=== PATIENT | male | born 1955 | race Hispanic/Latino ===

== ENCOUNTER 2018-05-08 05:57 | Observation (INO) | payer BC ==
[2018-05-05 13:30] VITALS: BP 149/74
[2018-05-05 13:31] LABS: BASOPHILS % (AUTO) 0.9 % (0.0-5.0); EOSINOPHILS % (AUTO) 3.4 % (0.0-8.0); LYMPHOCYTES % (AUTO) 28.6 % (21.0-51.0); MEAN CORPUSCULAR HEMOGLOBIN 29.6 pg (27.0-33.0); MEAN CORPUSCULAR HGB CONC 33.2 g/dL (32.0-36.0); MEAN CORPUSCULAR VOLUME 89.2 fL (79-99); MONOCYTES % (AUTO) 8.5 % (3.0-13.0); NEUTROPHILS % (AUTO) 58.6 % (40.0-77.0); PLATELET COUNT (AUTO) 250 K/uL (130-400); RED BLOOD CELL COUNT(AUTO) 5.04 MIL/uL (4.50-6.20); RED CELL DISTRIBUTION WIDTH 13.3 % (11.0-15.5); WHITE BLOOD COUNT (AUTO) 5.4 K/uL (4.8-10.8)
[2018-05-05 13:39] LABS: APPEARANCE,URINE Clear (CLEAR); BILIRUBIN,URINE Negative (NEGATIVE); COLOR,URINE Yellow (YELLOW); GLUCOSE, URINE (UA) >=1000 mg/dL (NEGATIVE); KETONES,URINE Negative (NEGATIVE); LEUKOCYTE ESTERASE ,URINE Negative (NEGATIVE); NITRATE,URINE Negative (NEGATIVE); OCCULT BLOOD,URINE Negative (NEGATIVE); PROTEIN,URINE Negative (NEGATIVE)
[2018-05-05 13:40] LABS: CREATININE 0.9 mg/dL (0.5-1.5); POTASSIUM 4.2 mmol/L (3.5-5.1)
[2018-05-05 13:44] LABS: INR 0.93 (0.85-1.15); PARTIAL THROMBOPLASTIN TIME 25.7 SEC (26.3-35.5); PROTHROMBIN TIME 9.8 SEC (9.6-11.6)
[2018-05-05 13:48] LABS: BACTERIA,URINE Rare /HPF (None Seen); RBC,URINE 0-1 /HPF (0-1); SQUAMOUS EPITHELIAL CELL,UR Rare /HPF (0-2); WBC,URINE 0-1 /HPF (0-1)
[2018-05-08] VITALS (11 sets, daily range): BP systolic 127–157; BP diastolic 77–92
[~2018-05-08] VITALS: Ht 166.4 cm; Wt 89.7 kg
[2018-05-08] MEDS ORDERED: SODIUM CHLORIDE 0.9% 1000ML 1,000 ML IV ONE (06:52)
[2018-05-08] MEDS ORDERED: EMPA1TAB9 PO (07:10)
[2018-05-08] MEDS ORDERED: METO25TA3 PO (07:10)
[2018-05-08] MEDS ORDERED: DILT180C51 PO (07:10)
[2018-05-08] MEDS ORDERED: ASPI-1146 PO (07:10)
[2018-05-08] MEDS ORDERED: ATOR20TA65 PO (07:10)
[2018-05-08] MEDS ORDERED: LOSA50TA25 PO (07:10)
[2018-05-08] MEDS ORDERED: IOHEXOL 350 MG/ML 100ML INFUS..BTL IV ONE (07:36)
[2018-05-08] MEDS ORDERED: IOHEXOL-350 50ML VIAL IV ONE ×2 (07:36→09:23)
[2018-05-08] MEDS ORDERED: BIVALIRUDIN 250 MG/VIAL IV ONE (07:36)
[2018-05-08] MEDS ORDERED: NITROGLYCERIN 5 MG/ML 10 ML VIAL IV ONE (07:36)
[2018-05-08] MEDS ORDERED: LIDOCAINE HCL 2% 20ML ONE (07:37)
[2018-05-08] MEDS ORDERED: MIDAZOLAM HCL 1 MG/ML 2ML VIAL ONE ×2 (08:09→08:37)
[2018-05-08] MEDS ORDERED: FENTANYL CITRATE PF 50 MCG/1 ML 2ML VIAL ONE (08:09)
[2018-05-08] MEDS ORDERED: TICAGRELOR 90 MG TABLET ONE (09:41)
[2018-05-08] MEDS ORDERED: ASPIRIN 325MG EC TAB 325 MG TABLET.DR PO ONE (09:43)
[2018-05-08] MEDS ORDERED: ONDANSETRON HCL 4 MG/2 ML VIAL IVP PRN (10:00)
[2018-05-08] MEDS ORDERED: ONDANSETRON HCL 4 MG/2 ML VIAL IVP SCH (10:00)
[2018-05-08] MEDS ORDERED: TEMAZEPAM 30 MG CAP PO PRN (10:00)
[2018-05-08] MEDS ORDERED: NITROGLYCERIN 0.4 MG SL TAB SL PRN (10:00)
[2018-05-08] MEDS ORDERED: ACETAMINOPHEN-CODEINE 300/30MG TAB PO PRN ×2 (10:00)
[2018-05-08] MEDS ORDERED: DEXTROSE 50%-WATER 50 ML DISP.SYRIN IV PRN (10:00)
[2018-05-08] MEDS ORDERED: METOPROLOL TARTRATE 1 MG/ML 5ML VIAL IV PRN (10:00)
[2018-05-08] MEDS ORDERED: GLUCAGON 1MG KIT 1 MG ML IM PRN (10:00)
[2018-05-08] MEDS ORDERED: HYDRALAZINE HCL 20 MG/ML VIAL IV PRN (10:00)
[2018-05-08] MEDS ORDERED: SODIUM CHLORIDE 0.9% 1000ML 1,000 ML IV SCH (10:45)
[2018-05-08] MEDS: INSULIN HUMULIN R 100 UNIT/ML 3ML SQ SCH ×3 (11:30→20:20)
[2018-05-08] MEDS: METOPROLOL TARTRATE 25 MG TAB PO SCH (20:28)
[2018-05-08] MEDS: TICAGRELOR 90 MG TABLET PO SCH (20:28)
[2018-05-08] MEDS ORDERED: ATORVASTATIN CALCIUM 20 MG TABLET PO SCH (21:00)
[2018-05-09 03:29] VITALS: BP 133/77
[2018-05-09 04:15] LABS: HEMATOCRIT 42.2 % (42-54); MEAN CORPUSCULAR HEMOGLOBIN 30.2 pg (27.0-33.0); PLATELET COUNT (AUTO) 242 K/uL (130-400); RED BLOOD CELL COUNT(AUTO) 4.75 MIL/uL (4.50-6.20); RED CELL DISTRIBUTION WIDTH 13.2 % (11.0-15.5); WHITE BLOOD COUNT (AUTO) 5.9 K/uL (4.8-10.8)
[2018-05-09 04:26] LABS: CREATININE 0.7 mg/dL (0.5-1.5); POTASSIUM 3.6 mmol/L (3.5-5.1)
[2018-05-09] MEDS: INSULIN HUMULIN R 100 UNIT/ML 3ML SQ SCH ×3 (06:33→12:33)
[2018-05-09 07:42] VITALS: BP 124/72
[2018-05-09] MEDS ORDERED: DILTIAZEM HCL 180 MG CAP.SR.24H PO SCH (09:00)
[2018-05-09] MEDS ORDERED: LOSARTAN 50 MG TABLET PO SCH (09:00)
[2018-05-09] MEDS ORDERED: ASPIRIN 81MG TAB.CHEW PO SCH (09:00)
[2018-05-09] MEDS: METOPROLOL TARTRATE 25 MG TAB PO SCH (09:49)
[2018-05-09] MEDS: TICAGRELOR 90 MG TABLET PO SCH (09:50)
[2018-05-09 12:06] VITALS: BP 139/83
[2018-05-09] MEDS ORDERED: ASPI-1181 PO (12:45)
[2018-05-09] MEDS ORDERED: CLOP75TA32 PO (12:46)
== END 2018-05-09 13:15 | disposition home or self-care (01) ==
LOC: DAH 05:57 → DAHIP 05:58 → DAH 05:58 → 2AH 15:18
PROVIDERS: ADMIT Internal Medicine Cardiovascular Disease; ATTEND Internal Medicine Cardiovascular Disease
DX: I25.119 Atherosclerotic heart disease of native coronary artery with unspecified angina pectoris (principal); E11.9 Type 2 diabetes mellitus without complications; E78.5 Hyperlipidemia, unspecified; I10 Essential (primary) hypertension; Z79.899 Other long term (current) drug therapy; Z79.01 Long term (current) use of anticoagulants
CPT/HCPCS: 36415 ×2; 71045; 80048 ×2; 80061; 81001; 82948 ×6; 85025; 85027; 85610; 85730; 93005 ×3; 93458; 96372; A4606; C1725 ×2; C1760; C1769 ×2; C1874 ×2; C1887; C1894 ×2; C9600; C9601; G0378 ×31; J0583; J1644; J1815 ×2; J2250 ×2; J3010; J3490 ×2; J7030; Q9965 ×2; Q9967 ×2; 99156; 99157